=== PATIENT | male | born 1975 | race Caucasian/White ===

== ENCOUNTER 2017-04-08 00:46 | Emergency (ER) | payer OTHER ==
[2017-04-08 00:52] VITALS: RESP 20; TEMP 98.2; O2SAT 99
[2017-04-08] MEDS ORDERED: KETOROLAC TROMETHAMINE 30 MG/ML SOL IM ONE (01:06)
[2017-04-08] MEDS ORDERED: [UNRECOGNIZED DRUG - OTHER] PO ONE (01:06)
[2017-04-08] MEDS ORDERED: KETOROLAC TROMETHAMINE 30 MG/ML SOL ONE (01:09)
[2017-04-08 01:22] VITALS: BP 187/110; PULSE 102
[2017-04-08] MEDS ORDERED: AMOXICILLIN 250 MG CAP PO ONE (01:32)
[2017-04-08] MEDS ORDERED: AMOXICILLIN(FRIDGE) 125/5 ML BOTTLE ONE (01:34)
[2017-04-08] MEDS ORDERED: AMOXICILLIN 125/5 ML BOTTLE PO ONE (01:36)
== END 2017-04-08 01:52 | disposition home or self-care (01) | DRG 159 ==
LOC: ED 00:46
DX: K08.89 Other specified disorders of teeth and supporting structures (principal)
CPT/HCPCS: 99283; J1885